=== PATIENT | female | born 1975 | race Caucasian/White ===

== ENCOUNTER → 2019-03-10 | Outpatient (CLI) | payer OTHER | LOC: LAB.O 07:23 | PROVIDERS: ATTEND Nurse Practitioner | DX: Z00.00 Encounter for general adult medical examination without abnormal findings (principal); E03.9 Hypothyroidism, unspecified ==

== ENCOUNTER → 2019-05-04 | Outpatient (CLI) | payer OTHER ==
--- NOTE | 2019-05-05 15:42 | RAD ---
EXAM DESCRIPTION: Shoulder,Right 2 or More Views CLINICAL HISTORY: RIGHT SHOULDER PAIN COMPARISON: None Available. TECHNIQUE: Two views right shoulder FINDINGS: Normal alignment right shoulder with mild AC joint arthropathy and modest lateral downward tilting of the acromion noted. Chest wall and upper lung giron are clear. The glenohumeral articulation is normal. No soft tissue masses calcifications or foreign bodies noted. IMPRESSION: 1. Mild AC joint degenerative arthropathy and lateral sloping of the acromion. Otherwise negative study. Electronically signed by: Bello Galarza MD 05/05/2019 3:40 PM CDT
--- NOTE | 2019-05-05 15:46 | RAD ---
EXAM DESCRIPTION: Lumbar Spine 3 Views CLINICAL HISTORY: LOWER BACK PAIN COMPARISON: None Available. TECHNIQUE: Three views lumbar spine FINDINGS: Three views lumbar spine demonstrate a tiny amount of curvature convex to the left. Minimal anterior degenerative lipping at the upper and mid lumbar spine is noted. Facet sclerosis at L4-5 and L5-S1 noted. The SI joints are normal and neural arch is intact. Mild degenerative disc narrowing at L5-S1 and to a lesser extent at the other levels is present with preserved vertebral height. IMPRESSION: Minimal levoscoliosis and mild degenerative disc disease and lower lumbar facet sclerosis with normal alignment of the spine. Electronically signed by: Bello Galarza MD 05/05/2019 3:44 PM CDT
== END ==
LOC: LAB.O 13:57
PROVIDERS: ATTEND Nurse Practitioner
DX: M19.011 Primary osteoarthritis, right shoulder (principal); M41.86 Other forms of scoliosis, lumbar region; M51.36 Other intervertebral disc degeneration, lumbar region; E03.9 Hypothyroidism, unspecified

== ENCOUNTER → 2019-05-19 | Outpatient (CLI) | payer OTHER ==
--- NOTE | 2019-05-22 09:36 | RAD ---
EXAM DESCRIPTION: Cervical Spine, 2-3 Views. CR/DR/XR. CLINICAL HISTORY: 43 years Female CERVICALGIA COMPARISON: Radiographs of the right scapula and right clavicle on the same visit. TECHNIQUE: 3 views Lateral image of the entire cervical spine, AP image. Open-mouth image C1-C2. FINDINGS: Cervical type vertebra: 7 Disk spaces: Maintained Facet joints: Unremarkable Compression deformities: None Bone Density: Normal Alignment: Lack of normal lordosis, straightened. Atlanto-axial joint: Slightly asymmetric due to lateral flexion. Soft tissues: Negative. IMPRESSION: Straightening of the cervical spine with lack of normal lordosis, and lateral flexion of the atlantoaxial joint may be related to muscle spasm. Electronically signed by: Malik Ayala MD 05/22/2019 9:34 AM CDT
--- NOTE | 2019-05-22 09:44 | RAD ---
EXAM DESCRIPTION: Clavicle,Right (accession [id number]), Scapula,Right (accession [id number]): CR/DR/XR. CLINICAL HISTORY: 43 years Female, PAIN IN SHOULDER COMPARISON: None. TECHNIQUE: 4 views AP and lordotic clavicle and external rotation shoulder and clavicle. Axillary view right shoulder. Findings: Normal bone density. Minimal arthrosis in the right AC joint. Downsloping of the acromion may be causing minimal narrowing of the supraspinatus tendon outlet. No joint margin arthritic changes. Glenohumeral joint is unremarkable. IMPRESSION: No acute bony or joint margin abnormality. Shape of the acromion process may be narrowing the supraspinatus tendon outlet. Electronically signed by: Malik Ayala MD 05/22/2019 9:39 AM CDT
--- NOTE | 2019-05-22 09:44 | RAD ---
EXAM DESCRIPTION: Clavicle,Right (accession [id number]), Scapula,Right (accession [id number]): CR/DR/XR. CLINICAL HISTORY: 43 years Female, PAIN IN SHOULDER COMPARISON: None. TECHNIQUE: 4 views AP and lordotic clavicle and external rotation shoulder and clavicle. Axillary view right shoulder. Findings: Normal bone density. Minimal arthrosis in the right AC joint. Downsloping of the acromion may be causing minimal narrowing of the supraspinatus tendon outlet. No joint margin arthritic changes. Glenohumeral joint is unremarkable. IMPRESSION: No acute bony or joint margin abnormality. Shape of the acromion process may be narrowing the supraspinatus tendon outlet. Electronically signed by: Malik Ayala MD 05/22/2019 9:39 AM CDT
== END ==
LOC: RAD 16:30
PROVIDERS: ATTEND Nurse Practitioner
DX: M25.519 Pain in unspecified shoulder (principal); M54.2 Cervicalgia

== ENCOUNTER → 2019-09-08 | Outpatient (CLI) | payer OTHER | LOC: LAB.O 09:30 | PROVIDERS: ATTEND Nurse Practitioner | DX: E03.9 Hypothyroidism, unspecified (principal) ==

== ENCOUNTER → 2019-11-01 | Outpatient (CLI) | payer OTHER ==
--- NOTE | 2019-11-02 07:59 | MRI ---
Study: MRI of the Right Shoulder. Indication: PAIN IN RIGHT SHOULDER Technique: Multiplanar, multi sequence MRI of the right shoulder was obtained without intravenous contrast. Comparison: None. Findings: Severe hypertrophic AC joint osteoarthritis with reactive marrow edema within the distal clavicular head and acromion. Type I acromion with mild lateral downsloping. Trace subacromial/subdeltoid bursal fluid. Supraspinatus and infraspinatus tendinosis with subtle low-grade articular tearing of the conjoined tendon insertion. The involved area measures approximately 6 mm transverse by 5 mm AP and involves up to 25% of expected tendon thickness. Subscapularis tendinosis with mild interstitial fissuring. Teres minor tendon intact. Rotator cuff musculature normal without atrophy, fatty infiltration, or intramuscular edema. Long head biceps tendon intact. Circumferential labral truncation without full-thickness tear. Tiny glenohumeral joint effusion. No acute fracture or advanced osteoarthritis. Impression: Supraspinatus and infraspinatus tendinosis with suspected tiny low grade articular tear of the conjoined tendon insertion. No full-thickness tear. Subscapularis tendinosis with mild interstitial fissuring. Circumferential labral truncation. Tiny glenohumeral joint effusion. Severe hypertrophic AC joint osteoarthritis. Electronically signed by: Anders Toth MD 11/02/2019 7:58 AM CDT
== END ==
LOC: MRI 11:00
PROVIDERS: ATTEND Orthopaedic Surgery
DX: M19.011 Primary osteoarthritis, right shoulder (principal); M75.91 Shoulder lesion, unspecified, right shoulder; M25.411 Effusion, right shoulder

== ENCOUNTER → 2020-01-03 | Outpatient (CLI) | payer OTHER ==
--- NOTE | 2020-01-03 14:22 | RAD ---
EXAM DESCRIPTION: KUB: CR/DR CLINICAL HISTORY: 44 years Female, HEMATURIA COMPARISON: Ultrasound bilateral kidneys on this visit. TECHNIQUE/FINDINGS: One view supine AP abdomen and pelvis. Moderate amount of fecal matter in the colon proximal more than distal. Distended gas in the transverse colon. This is significantly limiting evaluation of the bilateral kidneys. No abnormal radiodense objects overlying the distal ureters or urinary bladder. Minimal curvature of the spine. IMPRESSION: Significant limitations of evaluation of the kidneys bilaterally for radiodense stones and proximally ureters. No radiodense stones distal ureters or urinary bladder. Consider follow-up CT scan abdomen and pelvis without IV contrast if nephrolithiasis or bilateral hydronephrosis suspected. Electronically signed by: Malik Ayala MD 01/03/2020 2:20 PM CDT
--- NOTE | 2020-01-03 14:36 | US ---
EXAM DESCRIPTION: Renal: Ultrasound. CLINICAL HISTORY: 44 years Female HEMATURIA COMPARISON: None TECHNIQUE: Transcutaneous scanning: Two-dimensional and Doppler modes. FINDINGS: Right kidney measures 9.4 x 4.9 x 3.4 cm; mid-renal cortical thickness normal with normal .echogenicity. No hydronephrosis No echogenic stones. Smooth contour of the kidney with no perinephric fluid. Normal vascularity. Proximal ureter not visualized.. Left kidney measures 10.9 x 5.1 x 4.7 cm; mid-renal cortical thickness normal with normal. echogenicity. No hydronephrosis. No echogenic stones. Smooth contour of the kidney with no perinephric fluid. Normal vascularity.. Proximal ureter not visualized.. Urinary bladder was visualized. 55.1 mL. Ureteral jet in the bladder not seen by color Doppler bilaterally. Patient did not void. Abdominal aorta: 1.8 to 1.3 cm proximal to distal. IMPRESSION: Bilateral kidneys show no sonographic abnormalities. Minimal distention of the urinary bladder. Patient could not void. Unable to see intravesicular ureteral jets by color Doppler. No fluid around the bladder. Electronically signed by: Malik Ayala MD 01/03/2020 2:35 PM CDT
== END ==
LOC: US 09:39
PROVIDERS: ATTEND Nurse Practitioner
DX: R31.21 Asymptomatic microscopic hematuria (principal)

== ENCOUNTER → 2020-01-18 | Outpatient (CLI) | payer OTHER ==
--- NOTE | 2020-01-19 08:34 | CT ---
EXAM DESCRIPTION: Abdoment/Pelvis w/o Contrast: Computed Tomography. CLINICAL HISTORY: 44 years Female BLOOD IN URINE HEMATURIA COMPARISON: None. TECHNIQUE: Spiral-axial scans 2.5 x 2.5 mm intervals through the abdomen and pelvis without oral or IV contrast. Coronal and sagittal 2.0 mm reconstructions. Total Exam DLP: 1362 mGy-cm. This exam was performed according to our departmental CT dose-optimization program which includes automated exposure control, adjustment of the mA and/or kV according to patient size and/or use of iterative reconstruction technique; to reduce radiation dose to as low as reasonably achievable (ALARA). FINDINGS: Lung bases and pleura: Negative. Liver, stomach, spleen, and adrenal glands: Long axis right hepatic lobe 19 cm. No focal lesions. Smooth capsule. Stomach and other solid organs are negative. Pancreas, Gallbladder, and Ducts: Gallbladder visualized. Pancreas and ducts negative. Kidneys and Ureters: No echogenic stones hydronephrosis or perirenal fluid. No mass effect bilaterally with symmetric size. Normal caliber of ureters with no radiodense stones. No periureteral edema. Mesentery: No peritoneal free air or fluid. No fatty stranding and fascial thickening. Scattered lymph nodes adjacent to the small bowel. Aorta: Normal caliber. Small Bowel: Unremarkable. Terminal Ileum/Cecum: Multiple, anterior to the kidney and the posterior right hepatic lobe. Appendix is not well seen. No inflammatory process demonstrated. Colon: Redundant ascending colon as described in the above paragraph. Moderate amount of fecal material in the proximal segment and around the splenic flexure. Minimally redundant transverse colon. No complications. Pelvic Organs: Uterus is superior to the posterior bladder and minimally retroflexed. Bilateral ovaries seen with follicles. Large tampon in the cervix unusually oriented displacing the cervix to the right of midline and impressing on the base and right posterior urinary bladder. No fluid in the cul-de-sac. No radiodense stones in the bladder. Single pelvic calcification. Spine and Bony Pelvis: Minimal hypertrophy of the bilateral superior lateral acetabula with minimal over coverage of the bilateral femoral heads. L4-L5 decreased disc space with gas formation. Also seen is a large posterior bulging disc which may be extruded inferiorly. Spondylosis also at L1-L2. Abdominal Wall/Back Soft Tissues: Minimal diastases of the umbilicus but not containing bowel. Small inguinal nodes bilaterally. IMPRESSION: 1. No radiodense stones in the urinary tracts or urinary bladder. No hydronephrosis, or perinephric or periureteral edema. 2. Retroflexed uterus. Large tampon unusually placed in the right cervix, but no free fluid. Evaluate for vaginal bleeding. 3. Hypertrophic changes in the bilateral acetabula with femoral head over coverage could be causing femoral acetabular impingement. Possible L4-L5 disc herniation. Evaluate for radiculopathy. 4. Hepatomegaly, could be related to early steatosis. Electronically signed by: Malik Ayala MD 01/19/2020 8:32 AM CDT
== END ==
LOC: CT 14:30
PROVIDERS: ATTEND Nurse Practitioner
DX: R31.9 Hematuria, unspecified (principal); N85.4 Malposition of uterus; R16.0 Hepatomegaly, not elsewhere classified; M89.371 Hypertrophy of bone, right ankle and foot; M25.851 Other specified joint disorders, right hip; M25.852 Other specified joint disorders, left hip; T19.2XXA Foreign body in vulva and vagina, initial encounter

== ENCOUNTER → 2020-01-25 | Outpatient (CLI) | payer OTHER | LOC: YCFC.O 11:29 | PROVIDERS: ATTEND Nurse Practitioner | DX: R10.30 Lower abdominal pain, unspecified (principal) ==

== ENCOUNTER → 2020-02-12 | Outpatient (CLI) | payer OTHER | LOC: YCFC.O 11:10 | PROVIDERS: ATTEND Family Medicine | DX: Z01.818 Encounter for other preprocedural examination (principal) ==

== ENCOUNTER → 2020-02-19 | Outpatient (CLI) | payer OTHER | LOC: YCFC.O 13:40 | PROVIDERS: ATTEND Family Medicine | DX: R31.9 Hematuria, unspecified (principal) ==

== ENCOUNTER → 2020-03-06 | Outpatient (CLI) | payer OTHER ==
--- NOTE | 2020-03-07 07:44 | US ---
EXAM DESCRIPTION: Pelvic,Non-OB: Ultrasound. CLINICAL HISTORY: 44 years Female LOWER ABDOMINAL PAIN. Menstrual status unknown. COMPARISON: None TECHNIQUE: Transcutaneous scanning through the urine filled bladder. Endovaginal scanning. Medina-scale and Doppler modes. FINDINGS: Uterus 9.3 x 4.6 x 3.5 cm. 77.9 mL. Endometrium 7.5 mm.. Myometrium heterogeneous. Uterus not retroverted. Cervix multiple cysts. Largest measures 9.8 x 7.6 mm.. Cul-de-sac: Contains no fluid. Right ovary 3.6 x 2.8 x 2.1 cm. 11.1 mL. Normal color Doppler vascularity. Simple cyst measures 2.0 x 1.9 x 1.9 cm. Simple follicle measures 1.5 x 1.1 x 1.0 cm. No adnexal mass or free fluid. Left ovary 2.1 x 2.1 x 1.7 cm. 3.7 mL. Normal color Doppler vascularity. Small follicles but no cysts. No adnexal mass or free fluid. IMPRESSION: 1. Normal position of the uterus and normal size. Endometrial thickness upper normal range. Correlate with menstrual status. Multiple nabothian cysts, largest almost 1 cm diameter. No fluid in the cul-de-sac. 2. Enlarged right ovary with simple cyst and simple follicle. [facility] Best Practice guidelines: 2.0 cm simple ovarian cyst. No follow-up imaging is recommended. Left ovary is unremarkable. Reference: Radiology 2009;256(3):263-34 Electronically signed by: Malik Ayala MD 03/07/2020 7:42 AM CDT
== END ==
LOC: US 11:00
PROVIDERS: ATTEND Nurse Practitioner
DX: N88.8 Other specified noninflammatory disorders of cervix uteri (principal); N83.201 Unspecified ovarian cyst, right side

== ENCOUNTER 2020-03-13 05:28 | Day surgery (SDC) | payer OTHER ==
[2020-03-13] MEDS ORDERED: LACTATED RINGERS 1,000 ML ONE ×2 (05:56→08:20)
[2020-03-13] MEDS ORDERED: SODIUM CHL 0.9% 100ML MINI-BAG 100 ML IVPB ONE (05:56)
[2020-03-13] MEDS ORDERED: ceFAZolin SODIUM 1 GM VIAL ONE (05:57)
[2020-03-13] MEDS ORDERED: BUPIVACAINE 0.5% 30 ML VIAL INJ ONE ×2 (06:23→06:54)
[2020-03-13] MEDS ORDERED: BUPIVACAINE LIPOSOME 13.3 MG/ML VIAL INJ ONE ×2 (06:24→07:18)
[2020-03-13] MEDS ORDERED: MIDAZOLAM INJ 2 MG/2 ML VIAL ONE (06:53)
[2020-03-13] MEDS ORDERED: fentaNYL CITRATE INJ 50 MCG/ML AMP ONE (06:54)
[2020-03-13] MEDS ORDERED: DEXAMETHASONE INJ 10 MG/ML VIAL ONE (07:00)
[2020-03-13] MEDS ORDERED: PROPOFOL 200 MG/20 ML VIAL IV ONE (07:00)
[2020-03-13] MEDS ORDERED: LIDOCAINE 1% 10 ML VIAL INJ ONE (07:00)
[2020-03-13] MEDS ORDERED: ONDANSETRON INJ 4 MG/2 ML VIAL ONE (07:00)
[2020-03-13] MEDS: ceFAZolin SODIUM 1 GM VIAL ONE ×3 (07:59→08:14)
[2020-03-13] MEDS: VANCOMYCIN HCL INJ 1,000 MG VIAL IVPB ONE ×3 (07:59→08:14)
[2020-03-13] MEDS ORDERED: LEVALBUTEROL NEBS 1.25 MG/3 ML VIAL NEB ONE ×2 (08:44→08:45)
[2020-03-13] MEDS ORDERED: MORPHINE SULFATE INJ 10 MG/ML VIAL ONE (09:06)
[2020-03-13] MEDS ORDERED: MORPHINE SULFATE INJ 10 MG/ML VIAL IV ONE ×2 (09:09→09:15)
[2020-03-13] MEDS ORDERED: SODIUM CHLORIDE 0.9% 100ML 100 ML IVPB ONE (09:21)
[2020-03-13] MEDS ORDERED: PROMETHAZINE HCL INJ 25 MG/ML VIAL ONE (09:21)
[2020-03-13] MEDS ORDERED: PROMETHAZINE HCL INJ 25 MG/ML VIAL IVPB ONE (09:28)
[2020-03-13] MEDS ORDERED: HYDROcodone 5MG/APAP 325MG 1 EA TAB ONE (10:06)
[2020-03-13] MEDS ORDERED: HYDROcodone 5MG/APAP 325MG 1 EA TAB PO ONE (10:10)
[2020-03-13 10:12] VITALS: O2SAT 96
[2020-03-13 11:51] VITALS: BP 148/87; TEMP 98.3
--- NOTE | 2020-03-14 20:28 | OP ---
PREOPERATIVE DIAGNOSIS: 1. Impingement of the right shoulder. POSTOPERATIVE DIAGNOSIS: 1. Impingement of the right shoulder. PROCEDURE: 1. Subacromial decompression and distal clavicle resection. SURGEON: Addi Anna M.D. ANESTHESIA: General anesthesia. COMPLICATIONS: None. FINDINGS: 1. Advanced arthritis and osteophyte formation at the acromioclavicular joint. 2. Hypertrophic bursitis. INDICATION FOR PROCEDURE: Kristi has a long history of shoulder pain. We have attempted injections, physical therapy, antiinflammatories and ongoing activity modification. Unfortunately, Kristi has failed to gain relief. We have discussed options for her and after discussing the risks, benefits, and alternatives to operative therapy, informed consent was obtained for distal clavicle resection and subacromial decompression. DESCRIPTION OF PROCEDURE: The patient was brought to the Operating Room and placed in the supine position. General anesthesia was induced and the patient's arm and shoulder were sterilely prepped and draped. Following prepping and draping, an incision was made directly over the lateral border of the acromion. Full thickness skin flaps were developed and the deltoid muscle was identified. A split was made between the anterior and middle head and bursectomy was performed. The rotator cuff was identified and examined. There were no notable defects in the rotator cuff. Attention was then focused on the acromioclavicular joint.. Following identification of the acromioclavicular joint, the periosteum over the joint was elevated. The distal approximately 8 to 10 mm of the clavicle were resected. Care was taken to ensure complete removal of all bony debris and the wound was very thoroughly irrigated. The periosteum was reapproximated. The wound was again thoroughly irrigated and closed with a combination of interrupted and nylon suture. Sterile dressings were placed. The patient was placed in a sling and awakened from anesthesia and taken to recovery. POSTOPERATIVE INSTRUCTIONS: She has been placed in a sling. Her cousin has been given explicit instructions on limitations of activity until she follows up with us in 2 days. Will remove the dressing at that time and begin gentle range of motion. #[id number] MTDD
== END 2020-03-13 10:50 | disposition home or self-care (01) ==
LOC: AMB 05:28
PROVIDERS: ATTEND Orthopaedic Surgery
DX: M75.41 Impingement syndrome of right shoulder (principal); M19.011 Primary osteoarthritis, right shoulder; M25.711 Osteophyte, right shoulder; M75.51 Bursitis of right shoulder; I10 Essential (primary) hypertension; K21.9 Gastro-esophageal reflux disease without esophagitis; E66.9 Obesity, unspecified; F17.200 Nicotine dependence, unspecified, uncomplicated; Z79.899 Other long term (current) drug therapy
CPT/HCPCS: 00450; 23120; 80307; 81025; J0690; J2250; J2270; J2550; J3010; J3370; J3490; J7050; J7120; J7614

== ENCOUNTER → 2020-05-06 | Outpatient (CLI) | payer OTHER ==
--- NOTE | 2020-05-06 16:40 | RAD ---
EXAM DESCRIPTION: Pelvis, single view CLINICAL HISTORY: HIP PAIN LEFT FINDINGS/ IMPRESSION: Acetabular over coverage of the femoral head bilaterally left greater than right predisposing to femoroacetabular impingement No advanced arthrosis or focal osteochondral lesion of the hips No fracture of the proximal femora or pelvis Mild osteoarthritis of the sacroiliac joints and pubic symphysis Electronically signed by: Bello Jacobs MD 05/06/2020 4:38 PM CDT
--- NOTE | 2020-05-07 07:48 | RAD ---
EXAM DESCRIPTION: Left knee, 4 radiographs CLINICAL HISTORY: PAIN IN LEFT KNEE FINDINGS/ IMPRESSION: Normal mineralization. Normal alignment No focal demineralization or inflammatory erosion. No fracture or acute osteochondral lesion. Mild tricompartmental osteoarthritis manifest by small marginal osteophytes. No focal osteochondral lesion. No large joint effusion or other diagnostic soft tissue abnormality Electronically signed by: Bello Jacobs MD 05/07/2020 7:46 AM CDT
== END ==
LOC: RAD 10:42
PROVIDERS: ATTEND Orthopaedic Surgery
DX: M47.898 Other spondylosis, sacral and sacrococcygeal region (principal); M25.852 Other specified joint disorders, left hip; M25.851 Other specified joint disorders, right hip; M17.12 Unilateral primary osteoarthritis, left knee; M25.762 Osteophyte, left knee

== ENCOUNTER → 2020-07-05 | Outpatient (CLI) | payer OTHER | LOC: LAB.O 10:35 | PROVIDERS: ATTEND Nurse Practitioner | DX: N89.8 Other specified noninflammatory disorders of vagina (principal) ==

== ENCOUNTER → 2020-07-12 | Outpatient (CLI) | payer OTHER | LOC: YCFC.O 12:05 | PROVIDERS: ATTEND Nurse Practitioner | DX: N72 Inflammatory disease of cervix uteri (principal); N89.8 Other specified noninflammatory disorders of vagina ==

== ENCOUNTER → 2020-07-26 | Outpatient (CLI) | payer OTHER ==
--- NOTE | 2020-07-27 10:46 | RAD ---
EXAM: Shoulder,Left 2 or More Views INDICATION: 44 years Female, pain in left shoulder COMPARISON: None available FINDINGS: 4 views of the left shoulder were performed. No fracture or dislocation. No destructive osseous lesion. Mild degenerative change at the acromioclavicular joint and glenohumeral joint. AC joint is intact. No gross soft tissue abnormality. IMPRESSION: Mild degenerative change in the left shoulder without fracture or dislocation. Electronically signed by: Ursula Carranza MD 07/27/2020 10:44 AM [facility]
== END ==
LOC: RAD 08:32
PROVIDERS: ATTEND Orthopaedic Surgery
DX: M19.012 Primary osteoarthritis, left shoulder (principal)

== ENCOUNTER → 2020-08-05 | Outpatient (CLI) | payer OTHER | LOC: YCFC.O 10:59 | PROVIDERS: ATTEND Nurse Practitioner | DX: R82.79 Other abnormal findings on microbiological examination of urine (principal) ==

== ENCOUNTER → 2020-09-05 | Outpatient (CLI) | payer OTHER | LOC: YCFC.O 15:11 | PROVIDERS: ATTEND Nurse Practitioner | DX: E03.9 Hypothyroidism, unspecified (principal); G44.209 Tension-type headache, unspecified, not intractable ==